=== PATIENT | male | born 1995 | race African-American/Black ===

== ENCOUNTER 2016-09-01 15:13 | Emergency (ER) | payer MEDICAID ==
[~2016-09-01] VITALS: Ht 180.3 cm; Wt 120.5 kg
[~2016-09-01 15:13] MED LIST: AMOXICILLIN 50500 MG PO; AMOXICILLIN 8751 TAB PO; AMOXICILLIN TRI1 POW; AMOXICILLIN125 MG PO; IBU800 M1 PO; INDOCIN 25MG CA25 MG PO; LEVAQUIN 5500 MG/TA1 PO; MAGIC MOUTH PO; NAPROSYN500 MG PO; NO HOME MEDICATIONS; NORCO 325 MG-51 TAB PO; NORCO 325 MG-7.1 TAB PO; PEN-VEE K250 MG PO; PEN-VEE K500 MG PO; PERCOCET 325 MG1 TA2 PO; PERCOCET 325 MG1 TAB PO; PHENERGAN W/CO120 M1 PO; PHENERGAN W/CO120 ML PO; PREDNISONE20 MG PO; PROAIR HFA0.09 MG/AC IH; ROBAXIN 75750 MG/TAB; SEPTRA DS 8001 TAB PO; SEROQUEL 2525 MG/TAB PO; SEROQUEL XR300 MG; SEROQUEL XR400 M1 PO; TESSALON P100 MG/CAP PO; TUSS PO; ULTRAM 50MG TAB50 MG PO; ZITHROMAX 250M250 MG PO; [UNRECOGNIZED DRUG - OTHER] PO
[2016-09-01 15:21] VITALS: BP 133/98; PULSE 93; TEMP 98.3
== END 2016-09-01 16:05 | disposition home or self-care (01) ==
LOC: COL.ER 15:13
DX: N48.89 Other specified disorders of penis (principal); R23.8 Other skin changes

== ENCOUNTER 2017-07-20 09:55 | Emergency (ER) | payer MEDICAID ==
[~2017-07-20] VITALS: Ht 180.3 cm; Wt 127.3 kg
[2017-07-20 09:59] VITALS: BP 106/59
[2017-07-20 10:44] LABS: INFLUENZA A NEGATIVE; INFLUENZA B NEGATIVE
[2017-07-20 11:03] LABS: COLLECTION METHOD CLEAN CATCH
[2017-07-20 11:10] LABS: MUCOUS Present /lpf; PH 5 (5-8); SQUAMOUS EPITHELIAL None Seen /hpf; URINE APPEARANCE Clear; URINE BACTERIA None Seen /hpf; URINE BILIRUBIN Negative (NEGATIVE); URINE BLOOD Negative (NEGATIVE); URINE COLOR Yellow; URINE GLUCOSE Negative (NEGATIVE); URINE KETONE Negative (NEGATIVE); URINE LEUKOCYTE ESTERASE Negative (NEGATIVE); URINE NITRATE Negative (NEGATIVE); URINE PROTEIN(semi-quant) Negative (NEGATIVE); URINE RBC 0-2 /hpf; URINE UROBILINOGEN Negative (NEGATIVE)
[2017-07-20] MEDS ORDERED: ZITHROMAX Z PA250 MG PO (12:13)
[2017-07-20 12:20] VITALS: PULSE 110; TEMP 100.6
== END 2017-07-20 12:20 | disposition home or self-care (01) ==
LOC: COL.ER 09:55
PROVIDERS: Physician Assistant
DX: R50.9 Fever, unspecified (principal); Z90.89 Acquired absence of other organs

== ENCOUNTER 2018-04-27 15:44 | Emergency (ER) | payer MEDICAID ==
[~2018-04-27] VITALS: Ht 180.3 cm; Wt 118.2 kg
[~2018-04-27 15:44] MED LIST changes: +ZITHROMAX Z PA250 MG PO
[2018-04-27 15:52] VITALS: TEMP 98.8
[2018-04-27] MEDS ORDERED: SEROQUEL XR50 MG PO (16:17)
[2018-04-27 16:38] LABS: BASO % 0.2 % (0.0-2.0); EOS % 0.4 % (0-4.0); GRAN # 2.7 (1.4-6.5); GRAN % 59.3 % (42.2-75.2); HEMATOCRIT 47.4 % (42.0-52.0); HEMOGLOBIN 15.3 g/dl (13.5-18.0); LYMPH % 21.7 % (20.0-51.0); MEAN CELL VOLUME 90 fl (80.0-100.0); MEAN CORPUSCULAR HEMOGLOBIN 29 pg (27.0-31.0); MEAN CORPUSCULAR HGB CONC 32 g/dl (33.0-37.0); MEAN PLATELET VOLUME 8.7 fl (7.4-10.4); MONO # 0.8 (0.1-0.6); MONO % 18.2 % (1.7-9.3); PLATELET COUNT 265 K/mm3 (130-400); RED BLOOD COUNT 5.26 M/mm3 (4.20-5.60); REDCELL DISTRIBUTION WIDTH-CV 12.4 % (11.5-14.5)
[2018-04-27 16:48] LABS: COLLECTION METHOD CLEAN CATCH
[2018-04-27 16:51] LABS: ALBUMIN 4.4 gm/dL (3.5-5.0); BILIRUBIN,TOTAL 0.3 mg/dL (0.0-1.0); C-REACTIVE PROTEIN 3.7 mg/dL (0.0-0.9); CALCIUM 9.7 mg/dL (8.4-10.2); CREATININE, serum 0.96 mg/dL (0.66-1.25); POTASSIUM 4.4 mmol/L (3.4-5.0)
[2018-04-27 16:53] LABS: MUCOUS Present /lpf; PH 5 (5-8); SQUAMOUS EPITHELIAL 0-2 /hpf; URINE APPEARANCE Hazy; URINE BACTERIA None Seen /hpf; URINE BILIRUBIN Negative (NEGATIVE); URINE BLOOD Negative (NEGATIVE); URINE COLOR Yellow; URINE GLUCOSE Negative (NEGATIVE); URINE KETONE Negative (NEGATIVE); URINE LEUKOCYTE ESTERASE Negative (NEGATIVE); URINE NITRATE Negative (NEGATIVE); URINE PROTEIN(semi-quant) Negative (NEGATIVE); URINE RBC 0-2 /hpf; URINE UROBILINOGEN Negative (NEGATIVE)
[2018-04-27 17:11] VITALS: BP 135/78; PULSE 83
== END 2018-04-27 17:44 | disposition home or self-care (01) ==
LOC: COL.ER 15:44
PROVIDERS: Physician Assistant
DX: R10.9 Unspecified abdominal pain (principal); E66.9 Obesity, unspecified; F17.210 Nicotine dependence, cigarettes, uncomplicated; F20.9 Schizophrenia, unspecified; Z68.36 Body mass index [BMI] 36.0-36.9, adult

== ENCOUNTER 2018-12-07 04:00 | Emergency (ER) | payer MEDICAID ==
[~2018-12-07] VITALS: Ht 180.3 cm; Wt 113.6 kg
[~2018-12-07 04:00] MED LIST changes: +SEROQUEL XR50 MG PO
[2018-12-07 04:04] VITALS: BP 144/99; TEMP 97.8
[2018-12-07] MEDS ORDERED: AMOXICILLIN 8751 TAB PO ×2 (04:15→05:04)
[2018-12-07 05:05] VITALS: PULSE 97
== END 2018-12-07 05:05 | disposition home or self-care (01) ==
LOC: COL.ER 04:00
DX: J40 Bronchitis, not specified as acute or chronic (principal); F20.9 Schizophrenia, unspecified; J02.9 Acute pharyngitis, unspecified; F17.210 Nicotine dependence, cigarettes, uncomplicated; Z90.49 Acquired absence of other specified parts of digestive tract
CPT/HCPCS: J1100

== ENCOUNTER 2019-09-03 08:24 | Emergency (ER) | payer MEDICAID ==
[~2019-09-03] VITALS: Ht 180.3 cm; Wt 113.6 kg
[2019-09-03 08:28] VITALS: TEMP 97.6
[2019-09-03 09:19] LABS: BASO % 0.2 % (0.0-2.0); EOS % 0.9 % (0-4.0); GRAN # 2.6 (1.4-6.5); GRAN % 57.6 % (42.2-75.2); HEMATOCRIT 50.2 % (42.0-52.0); HEMOGLOBIN 16.5 g/dl (13.5-18.0); LYMPH # 1.5 (1.2-3.4); MEAN CELL VOLUME 91 fl (80.0-100.0); MEAN CORPUSCULAR HEMOGLOBIN 30 pg (27.0-31.0); MEAN CORPUSCULAR HGB CONC 33 g/dl (33.0-37.0); MEAN PLATELET VOLUME 8.4 fl (7.4-10.4); MONO # 0.4 (0.1-0.6); MONO % 8.1 % (1.7-9.3); PLATELET COUNT 343 K/mm3 (130-400); RED BLOOD COUNT 5.54 M/mm3 (4.20-5.60); REDCELL DISTRIBUTION WIDTH-CV 11.7 % (11.5-14.5)
[2019-09-03 09:23] LABS: BILIRUBIN,TOTAL 0.6 mg/dL (0.0-1.0); CALCIUM 10.5 mg/dL (8.4-10.2); CREATININE, serum 0.94 (0.66-1.25); MAGNESIUM 1.8 mg/dL (1.6-2.3); POTASSIUM 4.4 mmol/L (3.4-5.0); TOTAL PROTEIN 8.9 gm/dL (6.4-8.2)
[2019-09-03 09:34] LABS: TROPONIN-I 0.016 ng/mL (0.000-0.035)
[2019-09-03] MEDS ORDERED: AMOXICILLIN 50500 MG PO (11:07)
[2019-09-03 11:37] VITALS: BP 151/88; PULSE 67
== END 2019-09-03 11:39 | disposition home or self-care (01) ==
LOC: COL.ER 08:24
PROVIDERS: Physician Assistant
DX: K08.89 Other specified disorders of teeth and supporting structures (principal); R00.2 Palpitations; F20.9 Schizophrenia, unspecified; F17.210 Nicotine dependence, cigarettes, uncomplicated; Z88.6 Allergy status to analgesic agent; Z88.8 Allergy status to other drugs, medicaments and biological substances

== ENCOUNTER 2022-03-27 14:42 | Emergency (ER) | payer BC ==
[~2022-03-27] VITALS: Ht 180.3 cm; Wt 120.5 kg
[2022-03-27 15:28] VITALS: BP 127/60; TEMP 98.1
[2022-03-27 18:18] VITALS: PULSE 59
== END 2022-03-27 18:19 | disposition home or self-care (01) ==
LOC: COL.ER 14:42
DX: B34.9 Viral infection, unspecified (principal); F17.200 Nicotine dependence, unspecified, uncomplicated; Z20.822 Contact with and (suspected) exposure to COVID-19